=== PATIENT | female | born 2000 | race Caucasian/White ===

== ENCOUNTER → 2020-08-29 22:51 | Observation (INO) | END | disposition home or self-care (01) | LOC: 1NENULAB | PROVIDERS: ADMIT Student in an Organized Health Care Education/Training Program; ATTEND Student in an Organized Health Care Education/Training Program ==

== ENCOUNTER 2020-11-13 07:01 | Inpatient (IN) ==
[2020-11-13] MEDS ORDERED: Metoclopramide 10 MG/2 ML VIAL IVP PRN (08:06)
[2020-11-13] MEDS ORDERED: Naloxone 0.4 MG/ML INJ IVP PRN (08:06)
[2020-11-13] MEDS ORDERED: Famotidine 20 MG/2 ML VIAL IVP PRN (08:06)
[2020-11-13] MEDS ORDERED: Penicillin G Potassium 5,000,000 UNIT in 0.9 % Sodium Chloride Mini Bag 100 ML IVPB ONE (08:06)
[2020-11-13] MEDS ORDERED: *HR* Nalbuphine 10 MG/ML AMPUL IV PRN (08:06)
[2020-11-13] MEDS: Ringers Solution, Lactated 1,000 ML ONE ×2 (09:03→14:02)
[2020-11-13 09:41] LABS: Basophils % 0.2 %; Eosinophils # 0.1 K/mcL (0.0-0.6); Eosinophils % 0.3 %; Hematocrit 42.8 % (35.3-44.9); Hemoglobin 13.7 g/dL (11.5-15.4); Immature Granulocytes % 0.6 % (0-4); Lymphocytes # 2.4 K/mcL (0.6-4.6); Lymphocytes % 15.6 %; Mean Corpuscular Hemoglobin 26.6 pg (28.0-33.3); Mean Corpuscular Volume 82.9 fL (83.0-100.0); Monocytes # 1.1 K/mcL (0.0-1.3); Monocytes % 7.2 %; Neutrophils # 11.8 K/mcL (1.6-8.9); Platelet Count 295 K/mcL (140-400); Red Blood Count 5.16 M/mcL (3.82-4.97); Red Cell Distribution Width 14.1 % (11.5-14.5); Segmented Neutrophils % 76.1 %; White Blood Count 15.5 K/mcL (4.3-11.1)
[2020-11-13 10:41] LABS: Adenovirus Not Detected (Not Detect); Bordetella Pertussis Not Detected (Not Detect); Chlamydophila pneumoniae Not Detected (Not Detect); Coronavirus 229E Not Detected (Not Detect); Coronavirus HKU1 Not Detected (Not Detect); Coronavirus NL63 Not Detected (Not Detect); Coronavirus OC43 Not Detected (Not Detect); Human Metapneumovirus Not Detected (Not Detect); Human Rhinovirus/Enterovirus Not Detected (Not Detect); Influenza A Subtype 2009 H1 Not Detected (Not Detect); Influenza B Not Detected (Not Detect); Mycoplasma pneumoniae Not Detected (Not Detect); Parainfluenza Virus 1 Not Detected (Not Detect); Parainfluenza Virus 2 Not Detected (Not Detect); Parainfluenza Virus 3 Not Detected (Not Detect); Parainfluenza Virus 4 Not Detected (Not Detect); Respiratory Syncytial Virus Not Detected (Not Detect); SARS-CoV-2 Not Detected (Not Detect)
[2020-11-13 11:00] LABS: Amphetamine Screen,Urine Negative ng/mL (Cutoff=1000); Barbiturate Screen,Urine Negative ng/mL (Cutoff=200); Benzodiazepines Screen,Urine Negative ng/mL (Cutoff=200); Cannabinoid Screen,Urine Negative ng/mL (Cutoff = 50); Cocaine Screen,Urine Negative ng/mL (Cutoff= 300); Opiate Screen,Urine Negative ng/mL (Cutoff=300); Phencyclidine Screen,Urine Negative ng/mL (Cutoff=25)
[2020-11-13] MEDS ORDERED: Penicillin G Potassium 2,500,000 UNIT/105 ML MLS IVPB SCH (12:00)
[2020-11-13] MEDS ORDERED: Ondansetron 4 MG/2 ML VIAL IVP PRN (13:17)
[2020-11-13] MEDS ORDERED: Ringers Solution, Lactated 1,000 ML ONE (13:28)
[2020-11-13] MEDS ORDERED: Epidural Premix (fent/bupiv) 110 ML EP SCH (13:30)
[2020-11-13] MEDS ORDERED: Bupivacaine-MPF 0.25% 10 ML VIAL EP ONE (13:30)
[2020-11-13] MEDS ORDERED: *HR* FentaNYL (PF) 100 MCG/2 ML VIAL EP ONE (13:30)
[2020-11-13] MEDS ORDERED: EPHEDrine 50 MG/ML VIAL IVP PRN (13:30)
[2020-11-13] MEDS ORDERED: Bupivacaine-MPF 0.25% 10 ML VIAL ONE (13:52)
[2020-11-13] MEDS ORDERED: *HR* FentaNYL (PF) 100 MCG/2 ML VIAL ONE (13:52)
[2020-11-13] MEDS ORDERED: Oxytocin 20 units/ LR 1000 mL 20 UNIT/1,000 ML BAG IVC SCH ×2 (16:15→21:52)
[2020-11-13] MEDS ORDERED: Oxytocin 20 units/ LR 1000 mL 20 UNIT/1,000 ML BAG IVC ONE (17:55)
[2020-11-13] MEDS ORDERED: Lanolin 7 G OINT...G. TP PRN (21:52)
[2020-11-13] MEDS ORDERED: Ibuprofen 600 MG TABLET PO PRN (21:52)
[2020-11-13] MEDS ORDERED: Acetaminophen 325 MG TABLET PO PRN (21:52)
[2020-11-13] MEDS ORDERED: Benzocaine/Menthol 56 GM AEROSOL SPRAY TP PRN (21:52)
[2020-11-14] MEDS ORDERED: Prenatal Vit/FA 1 EACH TABLET PO SCH (09:00)
[2020-11-14 17:37] VITALS: BP 137/83
== END 2020-11-14 19:55 | disposition home or self-care (01) | DRG 560 ==
LOC: 1NENULAB → OBSVTOIN 07:01 → 1NENUOBS 21:08
PROVIDERS: ADMIT Obstetrics & Gynecology; ATTEND Obstetrics & Gynecology